=== PATIENT | male | born 1950 | race Caucasian/White ===

== ENCOUNTER → 2023-08-07 11:46 | Outpatient (REF) | payer MEDICARE, BC, SELFPAY ==
[2023-08-07 16:45] LABS: PSA, Total - Diagnostic 6.92 ng/ml (0.0-4.0)
== END ==
LOC: HWLAB 11:46
PROVIDERS: ATTENDING PHYSICIAN Internal Medicine
DX: R97.20 Elevated prostate specific antigen [PSA] (principal)
CPT/HCPCS: 36415; 84153

== ENCOUNTER → 2024-01-05 09:44 | Outpatient (REF) | payer MEDICARE, BC, SELFPAY ==
[2024-01-05 12:46] LABS: ALT (SGPT) 17 U/L (0-50); AST (SGOT) 24 U/L (17-59); Albumin 4.1 g/dl (3.5-5.0); Alkaline Phosphatase 78 U/L (38-126); Blood Urea Nitrogen 24 mg/dl (9-20); Carbon Dioxide 26 mmol/L (22-30); Chloride 104 mmol/L (98-107); Glucose 119 mg/dl (70-99); HDL Cholesterol 34 mg/dl; LDL Cholesterol, Calculated 62 mg/dl; Potassium 4.1 mmol/L (3.5-5.1); Sodium 138 mmol/L (135-145); Total Cholesterol 118 mg/dl (50-199); Triglyceride 110 mg/dl (10-149); Very Low Density Lipoprotein 22 mg/dl (0-30); eGFR > 60.00
[2024-01-05 13:10] LABS: Microalbumin, Random Urine 14.8 mg/dl (0.6-1.7)
[2024-01-05 13:16] LABS: TSH 3.15 uIU/ml (0.47-4.68)
[2024-01-06 11:04] LABS: Glycohemoglobin (HgbA1c) 6.5 % (4.0-5.6)
== END ==
LOC: HWLAB 09:44
PROVIDERS: ATTENDING PHYSICIAN Internal Medicine
DX: E11.59 Type 2 diabetes mellitus with other circulatory complications (principal); I10 Essential (primary) hypertension; E03.9 Hypothyroidism, unspecified
CPT/HCPCS: 36415; 80053; 80061; 82043; 83036; 84443

== ENCOUNTER → 2024-07-08 11:36 | Outpatient (REF) | payer MEDICARE, BC, SELFPAY ==
[2024-07-08 16:40] LABS: ALT (SGPT) 20 U/L (0-50); AST (SGOT) 22 U/L (17-59); Albumin 4.3 g/dl (3.5-5.0); Alkaline Phosphatase 77 U/L (38-126); Blood Urea Nitrogen 22 mg/dl (9-20); Calcium 9.1 mg/dl (8.4-10.2); Carbon Dioxide 25 mmol/L (22-30); Chloride 102 mmol/L (98-107); Glucose 112 mg/dl (70-99); HDL Cholesterol 36 mg/dl; LDL Cholesterol, Calculated 43 mg/dl; Potassium 4.3 mmol/L (3.5-5.1); Sodium 138 mmol/L (135-145); Total Bilirubin 1.1 mg/dl (0.2-1.3); Total Cholesterol 106 mg/dl (50-199); Total Protein 7.4 g/dl (6.3-8.2); Triglyceride 135 mg/dl (10-149); Very Low Density Lipoprotein 27 mg/dl (0-30); eGFR > 60.00
[2024-07-08 16:47] LABS: Microalbumin, Random Urine 14.4 mg/dl (0.6-1.7)
[2024-07-08 16:48] LABS: Microalbumin/creatinine Ratio 437.7 mg/g
[2024-07-08 17:03] LABS: TSH 3.92 uIU/ml (0.47-4.68)
[2024-07-09 08:57] LABS: Glycohemoglobin (HgbA1c) 7.4 % (4.0-5.6)
[2024-07-10 19:01] LABS: PSA Total 7.8 ng/mL (0.0-4.0)
== END ==
LOC: HWLAB 11:36
PROVIDERS: ATTENDING PHYSICIAN Surgery; FAMILY PHYSICIAN Internal Medicine
DX: R97.20 Elevated prostate specific antigen [PSA] (principal); E11.59 Type 2 diabetes mellitus with other circulatory complications; I10 Essential (primary) hypertension; E03.9 Hypothyroidism, unspecified
CPT/HCPCS: 36415; 80053; 80061; 82043; 82570; 83036; 84153; 84154; 84443

== ENCOUNTER → 2024-08-18 12:57 | Outpatient (REF) | payer MEDICARE, BC, SELFPAY | LOC: MRI 3T 12:57 | PROVIDERS: ATTENDING PHYSICIAN Internal Medicine | DX: R97.20 Elevated prostate specific antigen [PSA] (principal) | CPT/HCPCS: 72197; A9575 ==

== ENCOUNTER → 2025-01-09 11:59 | Outpatient (REF) | payer MEDICARE, BC, SELFPAY ==
[2025-01-09 16:41] LABS: ALT (SGPT) 12 U/L (0-50); AST (SGOT) 18 U/L (17-59); Albumin 4.2 g/dl (3.5-5.0); Alkaline Phosphatase 82 U/L (38-126); Blood Urea Nitrogen 18 mg/dl (9-20); Calcium 8.9 mg/dl (8.4-10.2); Carbon Dioxide 24 mmol/L (22-30); Chloride 108 mmol/L (98-107); Glucose 127 mg/dl (70-99); HDL Cholesterol 40 mg/dl; LDL Cholesterol, Calculated 74 mg/dl; Potassium 4.1 mmol/L (3.5-5.1); Sodium 137 mmol/L (135-145); Total Protein 7.5 g/dl (6.3-8.2); Very Low Density Lipoprotein 20 mg/dl (0-30); eGFR > 60.00
[2025-01-09 17:11] LABS: TSH 3.15 uIU/ml (0.47-4.68)
[2025-01-09 20:48] LABS: Microalbumin, Random Urine 36.6 mg/dl (0.6-1.7)
[2025-01-10 09:08] LABS: Microalb - Urine Creatinine 65.900 mg/dl
[2025-01-10 09:45] LABS: Glycohemoglobin (HgbA1c) 6.9 % (4.0-5.6)
== END ==
LOC: HWLAB 11:59
PROVIDERS: ATTENDING PHYSICIAN Internal Medicine
DX: E11.59 Type 2 diabetes mellitus with other circulatory complications (principal); I10 Essential (primary) hypertension; E03.9 Hypothyroidism, unspecified
CPT/HCPCS: 36415; 80053; 80061; 82043; 82570; 83036; 84443

== ENCOUNTER → 2025-02-16 14:00 | Outpatient (REF) | payer MEDICARE, BC, SELFPAY | LOC: HWRCS 14:00 | PROVIDERS: ATTENDING PHYSICIAN Internal Medicine | DX: I35.0 Nonrheumatic aortic (valve) stenosis (principal) | CPT/HCPCS: 93306 ==